=== PATIENT | male | born 1980 | race Caucasian/White ===

== ENCOUNTER → 2020-02-23 | Outpatient (CLI) | payer BC ==
[~2020-02-23] MED LIST: BENADRYL25 MG PO; CIPRO250 M1 PO; FLOMAX0.4 MG PO; HYDROCODONE-AP1 EAC6 PO
== END ==
LOC: LAB 13:24
PROVIDERS: ATTEND Anesthesiology
DX: Z01.812 Encounter for preprocedural laboratory examination (principal); Z20.828 Contact with and (suspected) exposure to other viral communicable diseases

== ENCOUNTER → 2020-04-19 | Outpatient (CLI) | payer BC, OTHER ==
[~2020-04-19] MED LIST changes: +ASPIRIN325 PO; +FISH OIL 1,0001 EAC9 PO; +FLONASE 0.05%50 MCG NARES; +MEN'S MULTIVIT1 EACH PO; +NORVASC5 M1 PO; +PROBIOTIC1 EAC7 PO; +SINGULAIR 10 MG10 MG PO; +STOOL SOFTENER100 MG PO; +STRATTERA100 MG PO; +SULINDAC 150 M150 MG PO; +TROKENDI XR50 MG PO; +ZYRTEC10 M5 PO
== END ==
LOC: LAB 04-18 09:16
PROVIDERS: ATTEND Surgery
DX: Z20.828 Contact with and (suspected) exposure to other viral communicable diseases (principal)

== ENCOUNTER 2020-04-22 08:01 | Day surgery (SDC) | payer BC, OTHER ==
[~2020-04-22] VITALS: Ht 177.8 cm; Wt 103.4 kg
--- NOTE | ~2020-04-22 | O ---
[facility] [address] [place] [address] OPERATIVE REPORT Name: MAUDE MOTA Room #: DEP [facility] M..#: [id number] Admission: 04/22/20 Attend Phys: Ever Dawson MD Discharge: 04/22/20 Date of : 84 Report #: [id number] THIS REPORT FOR: cc: Umesh Noland Steven F. DO Chu,Ever Medina MD ~ PREOPERATIVE DIAGNOSIS: Multiple painful lipomas through the trunk, right arm, right thigh located in the deep subcutaneous tissue. POSTOPERATIVE DIAGNOSIS: Multiple painful lipomas through the trunk, right arm and right thigh in the deep subcutaneous space. PROCEDURES PERFORMED: 1. Excision of truncal lipoma, 29 separate lipomas removed from the deep subcutaneous space. 2. Excision of right truncal lipoma, total of 17 in the subcutaneous space. 3. Excision of right arm lipoma x 3, subcutaneous space. 4. Excision of right thigh lipoma, subcutaneous space x 4. PROCEDURE NOTE: With the patient under general anesthesia with LMA, the trunk area was prepped and draped in sterile fashion. Most of the lipoma is along the ribcage. 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 The patient came in to see me in the office and these lipomas were evaluated. It measured about 2 cm. Some are smaller around a centimeter, but I am just feeling the tip of these lipomas. Noted about 10 to 15 of these lipomas that I was able to feel. When he came in today, he actually marked all the lipomas he had, and since he is undergoing general anesthesia, he wanted to have all these removed. There were approximately 50 thibodeaux that he made through the chest bilaterally, some abdominal wall bilaterally, and then right arm and right thigh. He did melanie 2 on the left thigh that I did not do with length of the anesthetic. PROCEDURE NOTE: The chest was prepped and draped in sterile fashion. A timeout was performed. At the site of the lipoma, skin was anesthetized with 0.25% Marcaine mixed with 1% lidocaine with epinephrine. Total of about 100 mL of this equal mixture was used. An incision is made about 1 and 1.5 cm. Lipomas found in the subcutaneous tissue and excised. These pretty were distinct lipomas found at each of the incisions. Started with the left chest and then closed the incisions here and then went down to the left abdomen, closed those incisions and went to the right chest. Again, 29 on the left side, 17 on the right side of the trunk. The right arm was then excised x 3 and then right leg x 4. We were able to just hold on to the arm to do the arm and then hold onto the leg and procedure performed without difficulty. All the skin incisions were closed with 4-0 and 5-0 PDS in interrupted fashion. Dermabond was used. Telfa, Op-Site was used for dressing over the multiple areas. The patient tolerated the procedure well and was taken to recovery room. [address] [address] OPERATIVE REPORT Name: MAUDE MENDES Room #: ELENITA Hayes#: [id number] Admission: 04/22/20 Attend Phys: Ever Dawson MD Discharge: 04/22/20 Date of : 84 Report #: [id number] ESTIMATED BLOOD LOSS: 50 mL. By: 1432 1505 Ever Dawson MD /nt
--- NOTE | 2020-04-22 09:23 | EKG ---
[place] [address] [facility] [place] [address] ELECTROCARDIOGRAM REPORT Name: MAUDE MOTA Room #: 150-5 [facility] M..#: [id number] Admission: 04/22/20 Attend Phys: Ever Dawson MD Discharge: Date of : 84 Report #: [id number] [facility] Test Date: 2020-04-22 Test Time: 08:52:34 Pat Name: MAUDE MOTA Department: Room: 150 5 Gender: M Magician/Illusionist: MING : 1980 Requested By: Ever Dawson Order Number: [id number] : Johnie Degroot Measurements Intervals [place] Rate: 81 P: 24 OH: 137 QRS: 3 QRSD: 96 T: -12 QT: 373 QTc: 433 Interpretive Statements Sinus rhythm Abnormal R-wave progression, early transition Left ventricular hypertrophy Borderline T abnormalities, inferior leads No previous ECG available for comparison Electronically Signed On 04-22-2020 9:22:57 [facility] by Johnie Degroot [email or web address] <ELECTRONICALLY SIGNED> By: Johnie Degroot MD, [facility] 04/22/20 0922 [id number] Johnie Degroot MD, FAC /EPI
[2020-04-22 09:27] VITALS: BP 147/100
[2020-04-22] MEDS ORDERED: HYDROCODON-ACE1 EAC7 PO (14:01)
[2020-04-22 14:07] VITALS: BP 147/100
== END 2020-04-22 15:15 | disposition home or self-care (01) ==
LOC: TBA 08:01 → OR 08:01 → TBA 08:02 → OR 11:17
PROVIDERS: ATTEND Surgery
DX: D17.1 Benign lipomatous neoplasm of skin and subcutaneous tissue of trunk (principal); D17.21 Benign lipomatous neoplasm of skin and subcutaneous tissue of right arm; D17.23 Benign lipomatous neoplasm of skin and subcutaneous tissue of right leg; I10 Essential (primary) hypertension; F41.9 Anxiety disorder, unspecified; G43.909 Migraine, unspecified, not intractable, without status migrainosus; Z98.890 Other specified postprocedural states; Z79.899 Other long term (current) drug therapy; Z87.442 Personal history of urinary calculi; Z90.49 Acquired absence of other specified parts of digestive tract
CPT/HCPCS: 50010; 50101; 50386; 50417; 54118; 56524; 56526; 62110; 62900; 70005